=== PATIENT | male | born 1985 | race Hispanic/Latino ===

== ENCOUNTER 2017-09-14 21:11 | Emergency (ER) | payer BC ==
[2017-09-14 21:20] VITALS: BP 126/70; PULSE 98; RESP 16; TEMP 97.5; O2SAT 100
--- NOTE | 2017-09-14 21:38 | ED PDOC ---
Upper Extremity Pain/Injury Time Seen by Provider: 09/14/17 21:33 Chief Complaint (Nursing): Finger,Hand,&Wrist Chief Complaint (Provider): Finger Laceration History Per: Patient History/Exam Limitations: no limitations Onset/Duration Of Symptoms: Hrs (less than an hour ago) Additional Complaint(s): 31 year old male presents to ED with complaints of a finger laceration sustained less than one hour [employer]. Patient states he was preparing dinner when he cut his left thumb with a kitchen knife. Patient is unsure if Tetanus is UTD. PCP: Severiano Pereyra Past Medical History Reviewed: Historical Data, Nursing Documentation, Vital Signs Vital Signs: Last Vital Signs Temp 97.5 F L 09/14/17 21:17 Pulse 98 H 09/14/17 21:17 Resp 16 09/14/17 21:17 BP 126/70 09/14/17 21:17 Pulse Ox 100 09/14/17 21:17 - Medical History PMH: No Chronic Diseases - Family History Family History: States: Unknown Family Hx - Social History Drugs: Denies - Immunization History Hx Tetanus Toxoid Vaccination: No Hx Influenza Vaccination: No Hx Pneumococcal Vaccination: No - Home Medications Home Medications: Ambulatory Orders Medication Instructions Recorded Ibuprofen [Motrin] 400 mg PO Q6 #30 tab 09/15/15 Tramadol HCl [Ultram] 50 mg PO Q6 #15 tab 09/15/15 Cephalexin [cephalexin] 500 mg PO QID #20 cap 09/14/17 - Allergies Allergies/Adverse Reactions: Allergies Allergy/AdvReac Type Severity Reaction Status Date / Time No Known Allergies Allergy Verified 09/14/17 21:16 Review of Systems ROS Statement: Except As Marked, All Systems Reviewed And Found Negative Musculoskeletal: Positive for: Hand Pain (left thumb laceration) Physical Exam - Reviewed Nursing Documentation Reviewed: Yes Vital Signs Reviewed: Yes - Physical Exam Appears: Positive for: Non-toxic, No Acute Distress Extremity: Positive for: Normal ROM, Other (<1 cm length superficial laceration to 1st digit of left hand. Present at posterior aspect of distal phalynx. No active bleeding. No injury to nail bed.). Negative for: Deformity Neurologic/Psych: Positive for: Alert, Oriented. Negative for: Motor/Sensory Deficits - ECG O2 Sat by Pulse Oximetry: 100 (RA) Pulse Ox Interpretation: Normal Medical Decision Making Medical Decision Makin Initial impression: laceration Initial plan: * Betadine and NS soak Scribe Attestation: Documented by Maddie Edmonds, acting as a scribe for Kenneth Mendez PA-C. Provider Scribe Attestation: All medical record entries made by the Scribe were at my direction and personally dictated by me. I have reviewed the chart and agree that the record accurately reflects my personal performance of the history, physical exam, medical decision making, and the department course for this patient. I have also personally directed, reviewed, and agree with the discharge instructions and disposition. Disposition - Clinical Impression Clinical Impression: Laceration of finger - Disposition Referrals: Severiano Pereyra MD [Non-Staff] - Disposition Time: 21:40 Condition: GOOD Prescriptions: Cephalexin [cephalexin] 500 mg PO QID #20 cap Instructions: Common Finger Injuries (DC), Common Finger Injuries Forms: [facility] (Yi)
[2017-09-14] MEDS ORDERED: Tdap Vaccine 0.5 ml Vial (10-64 yrs) IM ONE (21:41)
== END 2017-09-14 22:33 | disposition home or self-care (01) ==
LOC: H.ER 21:11
DX: S61.012A Laceration without foreign body of left thumb without damage to nail, initial encounter (principal); W26.0XXA Contact with knife, initial encounter; Y93.G1 Activity, food preparation and clean up; Z23 Encounter for immunization